=== PATIENT | female | born 1995 | race African-American/Black ===

== ENCOUNTER 2021-05-29 00:32 | Observation (INO) | payer MEDICAID ==
[~2021-05-29] VITALS: Ht 172.7 cm; Wt 158.8 kg
== END 2021-05-29 06:36 | disposition home or self-care (01) ==
LOC: 8 EST LDRP 00:32
PROVIDERS: ADMIT Specialist; ATTEND Specialist
DX: O26.891 Other specified pregnancy related conditions, first trimester (principal); R10.9 Unspecified abdominal pain; Z3A.01 Less than 8 weeks gestation of pregnancy
CPT/HCPCS: 59025; 76801; 76817; G0378; 99281; G0379

== ENCOUNTER 2021-05-29 01:54 | Emergency (ER) | payer MEDICAID ==
[~2021-05-29] VITALS: Ht 175.3 cm; Wt 109.3 kg
[2021-05-29 02:54] LABS: BASOPHILS % 0.8 % (0.0-2.0); EOSINOPHILS % 1.8 % (0.0-5.0); HEMATOCRIT. 35.4 % (36.0-48.0); HEMOGLOBIN. 10.8 g/dL (12.0-16.0); LYMPHOCYTES % 23.9 % (20.0-50.0); MEAN CORPUSCULAR HEMOGLOBIN 23.8 pg (28.0-32.0); MEAN CORPUSCULAR VOLUME 78.1 fL (81.0-99.0); MEAN PLATELET VOLUME 7.6 fl (7.4-10.4); MONOCYTES % 6.9 % (2.0-8.0); NEUTROPHILS % 66.6 % (40.0-76.0); PLATELET 358 x1000/uL (130-400); RED BLOOD CELL COUNT 4.53 mill/uL (4.2-5.4); RED CELL DISTRIBUTION WIDTH 17.2 % (11.6-14.6)
[2021-05-29 02:55] LABS: CHLORIDE 111 mEq/L (98-107)
[2021-05-29 03:00] LABS: ETHANOL BLOOD < 10 mg/dL
[2021-05-29 03:07] LABS: B-HCG QUANTITATIVE < 1 mIU/mL (<3)
[2021-05-29] MEDS ORDERED: ACETAMINOPHEN 500MG TABLET PO ONE (03:30)
[2021-05-29 03:48] LABS: CLARITY URINE CLEAR (CLEAR); COLOR URINE YELLOW (YELLOW); KETONES URINE NEGATIVE (NEGATIVE); LEUKOCYTE ESTERASE URINE NEGATIVE (NEGATIVE); NITRITE URINE NEGATIVE (NEGATIVE); OCCULT BLOOD URINE NEGATIVE (NEGATIVE); PROTEIN URINE NEGATIVE (NEGATIVE); SPECIFIC GRAVITY URINE 1.012 (1.005-1.030); UROBILINOGEN URINE 0.2 E.U./dL (0.2-1.0)
[2021-05-29 03:57] LABS: *BARBITURATES SCREEN URINE NEGATIVE (NEGATIVE); METHADONE URINE SCREEN NEGATIVE (NEGATIVE); OPIATES URINE SCREEN NEGATIVE (NEGATIVE); PHENCYCLIDINE URINE SCREEN NEGATIVE (NEGATIVE)
[2021-05-29 03:58] LABS: *AMPHETAMINES SCREEN URINE NEGATIVE (NEGATIVE); *BENZODIAZEPINES SCREEN URINE NEGATIVE (NEGATIVE); *COCAINE SCREEN URINE NEGATIVE (NEGATIVE)
[2021-05-29 04:01] LABS: CANNABINOID URINE SCREEN PRESUMTIVE POSITIVE (NEGATIVE)
[2021-05-29] MEDS ORDERED: HALOPERIDOL LACTATE 5MG/ML VIAL IM ONE (04:15)
[2021-05-29 05:09] VITALS: BP 152/80
== END 2021-05-29 05:11 | disposition home or self-care (01) ==
LOC: ER 01:54
DX: R44.3 Hallucinations, unspecified (principal); J45.909 Unspecified asthma, uncomplicated
CPT/HCPCS: 36415; 80053; 80305; 80307; 80320; 80329; 81003; 81025; 84443; 84702; 85025; 99283; J1630; G0480

== ENCOUNTER 2021-06-02 04:13 | Emergency (ER) | payer MEDICAID ==
[~2021-06-02] VITALS: Ht 172.7 cm; Wt 136.0 kg
[2021-06-02 04:41] VITALS: BP 138/72
[2021-06-02 08:45] LABS: EOSINOPHILS % 0.3 % (0.0-5.0); HEMATOCRIT. 35.7 % (36.0-48.0); HEMOGLOBIN. 11.3 g/dL (12.0-16.0); LYMPHOCYTES % 25.3 % (20.0-50.0); MEAN CORPUSCULAR HEMOGLOBIN 24.3 pg (28.0-32.0); MEAN CORPUSCULAR VOLUME 76.7 fL (81.0-99.0); MEAN PLATELET VOLUME 7.6 fl (7.4-10.4); MONOCYTES % 5.3 % (2.0-8.0); NEUTROPHILS % 68.1 % (40.0-76.0); PLATELET 406 x1000/uL (130-400); RED BLOOD CELL COUNT 4.65 mill/uL (4.2-5.4); RED CELL DISTRIBUTION WIDTH 17.3 % (11.6-14.6)
[2021-06-02 08:51] LABS: CHLORIDE 108 mEq/L (98-107)
[2021-06-02 09:06] LABS: B-HCG QUANTITATIVE < 1 mIU/mL (<3)
[2021-06-02 09:16] LABS: ETHANOL BLOOD < 10 mg/dL
== END 2021-06-02 16:53 | disposition left against medical advice (07) ==
LOC: ER 04:13
DX: F20.9 Schizophrenia, unspecified (principal); J45.909 Unspecified asthma, uncomplicated
CPT/HCPCS: 36415; 80053; 80307; 80320; 80329; 84702; 85025; 99283; G0480

== ENCOUNTER 2021-06-04 04:56 | Emergency (ER) | payer MEDICAID ==
[~2021-06-04] VITALS: Ht 165.1 cm; Wt 113.0 kg
[2021-06-04 04:59] VITALS: BP 160/97
== END 2021-06-04 05:22 | disposition left against medical advice (07) ==
LOC: ER 04:56
DX: O26.892 Other specified pregnancy related conditions, second trimester (principal); R10.9 Unspecified abdominal pain; Z3A.27 27 weeks gestation of pregnancy
CPT/HCPCS: 99283

== ENCOUNTER 2021-06-05 02:18 | Emergency (ER) | payer MEDICAID ==
[~2021-06-05] VITALS: Ht 167.6 cm; Wt 145.0 kg
[2021-06-05 02:21] VITALS: BP 155/100
[2021-06-06] MEDS ORDERED: TOPUD MT (04:09)
== END 2021-06-05 07:00 | disposition left against medical advice (07) ==
LOC: ER 02:40
DX: Z53.21 Procedure and treatment not carried out due to patient leaving prior to being seen by health care provider (principal)

== ENCOUNTER 2021-06-05 17:40 | Emergency (ER) | payer MEDICAID ==
[~2021-06-05] VITALS: Ht 167.6 cm; Wt 114.0 kg
[2021-06-05 17:44] VITALS: BP 134/82
[2021-06-06] MEDS ORDERED: TOPUD MT (04:09)
== END 2021-06-06 00:28 | disposition left against medical advice (07) ==
LOC: ER 17:40
DX: R10.9 Unspecified abdominal pain (principal); Z53.21 Procedure and treatment not carried out due to patient leaving prior to being seen by health care provider

== ENCOUNTER 2021-06-06 00:40 | Emergency (ER) | payer MEDICAID ==
[~2021-06-06] VITALS: Ht 165.1 cm; Wt 136.0 kg
[2021-06-06] MEDS ORDERED: ACETAMINOPHEN 325MG TABLET PO ONE (02:45)
[2021-06-06] MEDS ORDERED: TOPUD MT (04:09)
[2021-06-06 04:10] VITALS: BP 155/95
== END 2021-06-06 04:30 | disposition home or self-care (01) ==
LOC: ER 00:40
DX: R10.9 Unspecified abdominal pain (principal); J45.909 Unspecified asthma, uncomplicated; F31.9 Bipolar disorder, unspecified; F20.9 Schizophrenia, unspecified
CPT/HCPCS: 99283

== ENCOUNTER 2021-06-06 07:09 | Emergency (ER) | payer MEDICAID ==
[~2021-06-06] VITALS: Ht 172.7 cm; Wt 145.0 kg
[~2021-06-06 07:09] MED LIST: TOPUD MT
[2021-06-06 07:22] VITALS: BP 166/83
[2021-06-06] MEDS ORDERED: ACETAMINOPHEN 325MG TABLET PO STA (07:52)
[2021-06-06 08:14] LABS: CLARITY URINE CLEAR (CLEAR); COLOR URINE YELLOW (YELLOW); KETONES URINE NEGATIVE (NEGATIVE); LEUKOCYTE ESTERASE URINE NEGATIVE (NEGATIVE); NITRITE URINE NEGATIVE (NEGATIVE); OCCULT BLOOD URINE NEGATIVE (NEGATIVE); PH URINE 5.5 (4.5-8.0); PROTEIN URINE NEGATIVE (NEGATIVE); SPECIFIC GRAVITY URINE 1.037 (1.005-1.030); UROBILINOGEN URINE 0.2 E.U./dL (0.2-1.0)
== END 2021-06-06 08:29 | disposition home or self-care (01) ==
LOC: ER 07:09
DX: R10.9 Unspecified abdominal pain (principal); J45.909 Unspecified asthma, uncomplicated; F31.9 Bipolar disorder, unspecified; F20.9 Schizophrenia, unspecified
CPT/HCPCS: 81003; 81025; 99283

== ENCOUNTER 2021-06-16 21:24 | Emergency (ER) | payer MEDICAID ==
[~2021-06-16] VITALS: Ht 172.7 cm; Wt 100.0 kg
[2021-06-16 21:29] VITALS: BP 108/60
[2021-06-17] MEDS ORDERED: ACETAMINOPHEN 325MG TABLET PO NR (04:49)
[2021-06-17] MEDS ORDERED: ONDANSETRON 4MG ODT PO NR (04:49)
[2021-06-17] MEDS ORDERED: TOPUD PO (04:55)
[2021-06-17] MEDS ORDERED: ONDA4TAB5 PO (04:55)
== END 2021-06-17 05:13 | disposition home or self-care (01) ==
LOC: ER 21:24
DX: K29.00 Acute gastritis without bleeding (principal); F99 Mental disorder, not otherwise specified
CPT/HCPCS: 99283; Q0162

== ENCOUNTER 2021-08-11 00:08 | Emergency (ER) | payer MEDICAID ==
[~2021-08-11] VITALS: Ht 180.3 cm; Wt 132.0 kg
[~2021-08-11 00:08] MED LIST changes: +ONDA4TAB5 PO; +TOPUD PO
[2021-08-11] MEDS ORDERED: ACETAMINOPHEN 325MG TABLET PO ONE (02:15)
[2021-08-11 02:38] LABS: CLARITY URINE CLEAR (CLEAR); COLOR URINE YELLOW (YELLOW); KETONES URINE NEGATIVE (NEGATIVE); LEUKOCYTE ESTERASE URINE NEGATIVE (NEGATIVE); NITRITE URINE NEGATIVE (NEGATIVE); OCCULT BLOOD URINE NEGATIVE (NEGATIVE); PH URINE 6.5 (4.5-8.0); PROTEIN URINE NEGATIVE (NEGATIVE); UROBILINOGEN URINE 0.2 E.U./dL (0.2-1.0)
[2021-08-11 02:59] LABS: BASOPHILS % 1.1 % (0.0-2.0); EOSINOPHILS % 1.8 % (0.0-5.0); HEMATOCRIT. 32.4 % (36.0-48.0); HEMOGLOBIN. 10.4 g/dL (12.0-16.0); LYMPHOCYTES % 33.5 % (20.0-50.0); MEAN CORPUSCULAR HEMOGLOBIN 24.2 pg (28.0-32.0); MEAN CORPUSCULAR VOLUME 75.3 fL (81.0-99.0); MONOCYTES % 7.5 % (2.0-8.0); NEUTROPHILS % 56.1 % (40.0-76.0); PLATELET 383 x1000/uL (130-400); RED BLOOD CELL COUNT 4.31 mill/uL (4.2-5.4)
[2021-08-11 03:08] LABS: CHLORIDE 110 mEq/L (98-107)
[2021-08-11] MEDS ORDERED: ACET-2708 MT (03:23)
[2021-08-11 03:49] VITALS: BP 135/71
[2021-08-11] MEDS ORDERED: ALBU6.7H9 INH (22:15)
== END 2021-08-11 03:51 | disposition home or self-care (01) ==
LOC: ER 00:08
DX: R10.84 Generalized abdominal pain (principal); J45.909 Unspecified asthma, uncomplicated
CPT/HCPCS: 36415; 80053; 81003; 81025; 84702; 85025; 99283

== ENCOUNTER 2021-08-11 21:50 | Emergency (ER) | payer MEDICAID ==
[~2021-08-11] VITALS: Ht 175.3 cm; Wt 118.0 kg
[~2021-08-11 21:50] MED LIST changes: +ACET-2708 MT
[2021-08-11 21:57] VITALS: BP 144/78
[2021-08-11] MEDS ORDERED: ALBU6.7H9 INH (22:15)
== END 2021-08-12 02:20 | disposition home or self-care (01) ==
LOC: ER 21:50
DX: G89.29 Other chronic pain (principal); R10.9 Unspecified abdominal pain; J45.909 Unspecified asthma, uncomplicated; Z76.0 Encounter for issue of repeat prescription
CPT/HCPCS: 99283

== ENCOUNTER 2021-08-13 02:53 | Emergency (ER) | payer MEDICAID ==
[~2021-08-13] VITALS: Ht 175.3 cm; Wt 102.0 kg
[~2021-08-13 02:53] MED LIST changes: +ALBU6.7H9 INH
[2021-08-13 04:19] VITALS: BP 142/88
== END 2021-08-13 04:20 | disposition home or self-care (01) ==
LOC: ER 02:53
DX: G89.29 Other chronic pain (principal); R10.9 Unspecified abdominal pain
CPT/HCPCS: 99283

== ENCOUNTER 2021-08-13 21:44 | Emergency (ER) | payer MEDICAID ==
[~2021-08-13] VITALS: Ht 167.6 cm; Wt 100.0 kg
[2021-08-13 21:56] VITALS: BP 168/103
[2021-08-13] MEDS ORDERED: ACETAMINOPHEN 325MG TABLET PO ONE (22:00)
== END 2021-08-13 22:44 | disposition home or self-care (01) ==
LOC: ER 21:44
DX: R10.9 Unspecified abdominal pain (principal)
CPT/HCPCS: 99283